=== PATIENT | female | born 1960 | race Caucasian/White ===

== ENCOUNTER → 2025-07-03 | Outpatient (CLI) | payer MEDICARE, SELFPAY ==
--- NOTE | 2025-07-03 14:00 | XR_ITS ---
Examination: CT abdomen and pelvis without contrast. Coronal 3-D reconstructions. Sagittal 2-D reconstructions. Date and time of exam:July 03, 2025, 1358 hours INDICATIONS: Left upper abdominal pain beginning 5 years ago, history kidney stones CTDI: vol (mGy): 4.62 DLP: (mGycm): 201 Technique: Axial images of the abdomen have been obtained, 3 mm slice thickness Intravenous contrast material has not been administered. Low dose protocols were performed. One or more of the following dose reduction techniques were used; automated exposure control, adjustment of the mA and/or KV according to patient size, use of iterative reconstruction technique. Findings: No focal liver or splenic lesion No gallstones No pancreatic mass Normal appendix 13 mm lower pole right renal calculus No hydronephrosis or ureteral calculi No bowel obstruction Mild small bowel ileus Colonic diverticulosis Urinary bladder wall thickening up to 4 mm No bladder calculi Atrophic uterus Advanced degenerative disc disease L1-L2, L3-L4 IMPRESSION: 13 mm nonobstructing right renal calculus Cystitis pattern
== END | disposition home or self-care (01) ==
PROVIDERS: Referring Provider Surgery; Visit Provider Surgery
DX: N20.0 Calculus of kidney (principal)
CPT/HCPCS: 74176

== ENCOUNTER 2025-08-21 09:35 | Day surgery (SDC) | payer MEDICARE, SELFPAY ==
[2025-08-20 10:00] VITALS: BMI 21.9
--- NOTE | 2025-08-20 10:18 | SUR.PREOP ---
Pt stated has no ride or car, she will uber back home, she communicated with Dr Sepulveda and he okayed for her to register and labs the morning of surgery.
--- NOTE | 2025-08-20 13:47 | ESHP_ITS ---
RE: ERICA VELÁSQUEZ : 1960 DATE OF ADMISSION: 08/20/2025 HISTORY OF PRESENT ILLNESS: Patient is a 64-year-old female with a right-sided kidney stone. She has a history of high calcium, parathyroid hormone is normal. PAST SURGICAL HISTORY: Three C-sections. PAST MEDICAL HISTORY: She has a history of radiation to the thyroid for goiter. There is no history of diabetes mellitus, no history of hypertension. SOCIAL HISTORY: She has 3 children. ALLERGIES: CODEINE. HOME MEDICATIONS: 1. Levothyroxine. 2. Inhaler. PHYSICAL EXAMINATION: HEENT: Normal. NECK: Supple. LUNGS: Clear. CARDIOVASCULAR: Heart sounds are normal. ABDOMEN: Soft without any organomegaly. No guarding. No rigidity. EXTREMITIES: Normal. LABORATORY DATA: CT scan of the abdomen revealed 13 mm right renal stone in lower pole. PLAN: Cystoscopy, right ureteral stent insertion, and extracorporeal shock wave lithotripsy for the right renal lower pole stone. Planned procedure, risks, and complications have been discussed with the patient. Patient has understood them and agreed to proceed. DT: 12:48:07 TT: 13:45:00 Ref: [id number] - TID: [id number]
[2025-08-21] VITALS (7 sets, daily range): BP systolic 131–163; BP diastolic 53–91; PULSE 56–65; RESP 13–22; TEMP 36.3–36.4; O2SAT 98–100; BMI 21.5
--- NOTE | 2025-08-21 06:00 | EKG_ITS ---
[facility] Test Date: 2025-08-21 Pat Name: ERICA VELÁSQUEZ Department: Room: - Gender: Female Library Information Technician: CARLEY : 1960 Requested By: Naif Sepulveda Order Number: [id number] Reading MD: Naif Sepulveda Measurements Intervals [place] Rate: 50 P: 71 AL: 140 QRS: 5 QRSD: 98 T: 48 QT: 409 QTc: 374 Interpretive Statements SINUS BRADYCARDIA POSSIBLE LEFT ATRIAL ENLARGEMENT LOW QRS VOLTAGE IN PRECORDIAL LEADS No previous ECG available for comparison /store/[email or web address]/[id number]/ecg/[id number].pdf
--- NOTE | 2025-08-21 10:00 | XR_ITS ---
Examination: Abdomen AP single view Technique: AP portable supine abdomen, single view Exam date and time: August 21, 2025, 1155 hours INDICATIONS: Preop, history kidney stones. FINDINGS: 11 mm lower pole right renal calculus No ureteral calculi Nonobstructive bowel gas pattern IMPRESSION: 11 mm lower pole right renal calculus
[2025-08-21 11:01] LABS: Basophils # (Auto) 0.1 Thou/mm3 (0.0-0.2); Basophils % (Auto) 2 % (0-2.5); Eosinophils # (Auto) 0.1 Thou/mm3 (0.0-0.5); Eosinophils % (Auto) 2 % (0-10); Hematocrit 41.2 % (36.0-46.0); Hemoglobin 14.0 g/dL (12.0-16.0); Immature Granulocytes Auto 0.01 Thou/mm3 (0.00-0.00); Lymphocytes # (Auto) 2.0 Thou/mm3 (1.0-4.8); Lymphocytes % (Auto) 36 % (10-50); Mean Corpuscular HGB Conc 34.0 g/dl (31.0-37.0); Mean Corpuscular Hemoglobin 30.5 pg (25.0-35.0); Mean Corpuscular Volume 90 fL (80-100); Monocytes # (Auto) 0.4 Thou/mm3 (0.0-0.8); Monocytes % (Auto) 6 % (0-12); Neutrophils # (Auto) 3.0 Thou/mm3 (1.8-7.7); Neutrophils % (Auto) 54 % (37-80); Nucleated Red Blood Cell # 0.00 Thou/mm3 (0.00-0.00); Nucleated Red Blood Cell % 0 /100 WBC (0); Platelet Count 250 Thou/mm3 (140-440); RDW Standard Deviation 41.7 fL (36.4-46.3); Red Blood Count 4.59 Miln/mm3 (4.00-5.20); White Blood Count 5.7 Thou/mm3 (3.6-11.0)
[2025-08-21 11:22] LABS: Alanine Aminotransferase 9 U/L (10-49); Albumin, Serum 5.0 gm/dL (3.4-4.8); Albumin/Globulin Ratio 2.3 (1.2-2.2); Alkaline Phosphatase 90 U/L (46-116); Anion Gap 7 (7-16); Aspartate Amino Transferase 18 U/L (0-34); BUN/Creatinine Ratio 8 Ratio (12-20); Bilirubin,Total 0.5 mg/dL (0.3-1.2); Blood Urea Nitrogen 7 mg/dL (9-23); Calcium 10.5 mg/dL (8.3-10.6); Calcium (Corrected) 10.5 mg/dL (8.5-10.1); Carbon Dioxide 26.3 mMol/L (20.0-31.0); Chloride 107 mMol/L (98-107); Creatinine (Component) 0.9 mg/dL (0.6-1.3); Estimated Creatinine Clearance 47.0 mL/min (>60); Globulin 2.2 gm/dL (2.3-3.5); Glucose 97 mg/dL (74-106); Osmolality,Calculated 277 (275-295); Potassium 5.0 mMol/L (3.4-5.1); Sodium 140 mMol/L (136-145); Total Protein 7.2 gm/dL (5.7-8.2); eGFR > 60 See Note
--- NOTE | 2025-08-21 15:45 | SUR.PHASEI ---
1545: pt received from OR via [facility]. received report from IRWIN Dumont and Manish Mcghee RN. pt alert and oriented. denies any pain or discomfort. no s/s of resp. distress or discomfort. no bleeding observed from perinuem.
[2025-08-21] MEDS: ACETAMINOPHEN IVPB 1,000 MG/100 ML VIAL 250 MG IV (16:14)
--- NOTE | 2025-08-21 16:26 | SUR.PHASEII ---
1626: pt requested to use the bathroom. pt able to urinate x1 with pink color urine.
--- NOTE | 2025-08-21 16:40 | SUR.PHASEII ---
1640: discharge instructions given to pt and Rl, friend, verbalizes understanding.
--- NOTE | 2025-08-21 16:41 | SUR.PHASEII ---
1641: pt discharge to home via wheelchair. pt alert and oriented. denies any pain or discomfort. no s/s of resp. distress or discomfort. no bleeding noted from perinuem.
--- NOTE | 2025-08-21 21:47 | ESOP_ITS ---
RE: ERICA VELÁSQUEZ : 1960 PREOPERATIVE DIAGNOSIS: Right renal stone, 13 mm in size. POSTOPERATIVE DIAGNOSIS: Right renal stone, 13 mm in size. PROCEDURES PERFORMED: Cystoscopy, right ureteral stent insertion, 6-Mongolian x 24 cm, and a right extracorporeal shockwave lithotripsy for the right renal stone. ANESTHESIA: General by Mr. Manish Mcghee. INDICATIONS: Patient is a 64-year-old female with a right renal stone, 13 mm in size, with a right renal pain. She was found to have a 13 mm stone in the right renal pelvis. She is now scheduled to have ESWL for the right renal stone with a cystoscopy and right ureteral stent insertion. Planned procedure, risks, and complications have been discussed with the patient. Patient understood them and agreed to proceed. DESCRIPTION OF PROCEDURE: After the patient was brought to the operating table under adequate general anesthesia given by Mr. Manish Mcghee, patient was placed in dorsal lithotomy position. Parts were prepped and draped in the usual fashion. Cystoscopy was then carried out, which revealed adequate urethral meatus, normal-appearing urethra. Residual urine was about 2 ounces, yellow and clear, and was sent for culture and sensitivity examination. There were no intravesical stones or tumors. Ureteral orifices were found to be normal in position and appearance. Right ureteral orifice was catheterized with an open-tip ureteral catheter and a guidewire was passed through the ureteral catheter all the way up to the right kidney. A 6 Mongolian x 24 cm double-J right ureteral stent was inserted over the guidewire under C-arm fluoroscopy control, so as the proximal loop of the stent was lying in the right kidney and distal loop was in the bladder. Patient was then positioned on Dornier Delta 3 lithotripsy machine and 2500 shocks were given to the right renal stone, 13 mm in size, at power level 7. Patient tolerated the entire procedure well and left the room in good condition. DT: 15:35:03 TT: 21:46:00 Ref: [id number] - TID: [id number]
== END 2025-08-21 16:41 | disposition home or self-care (01) ==
PROVIDERS: Anesthesiology; PCP Physician Assistant Medical; Referring Provider Surgery; Visit Provider Surgery
PROC: (CPT 50590; principal; 2025-08-21 14:45)
PROC: (CPT 52282; 2025-08-21 14:45)
DX: N20.0 Calculus of kidney (principal); Z01.810 Encounter for preprocedural cardiovascular examination
CPT/HCPCS: 50590; 52332; 36415; 74018; 80053; 81001; 85025; 87086; 93005; A4217; A4649; C1769; C2617; J0131; J0694; J2250; J2704; J3010; J3490; J1596

== ENCOUNTER → 2025-09-02 | Outpatient (CLI) | payer MEDICARE, MEDICAID, SELFPAY ==
--- NOTE | 2025-09-02 | XR_ITS ---
Examination: Abdomen AP single view Technique: AP portable supine abdomen, single view Exam date and time: September 02, 2025, 1238 hours, comparison March 21, 2025 INDICATIONS: History kidney stones right ureteral stent placement 2 weeks ago. FINDINGS: Right ureteral stent in satisfactory position 12 mm calculus lower pole right kidney with adjacent smaller calculi No left renal calculi IMPRESSION: Right ureteral stent satisfactory position
== END | disposition home or self-care (01) ==
LOC: CDIM 12:15
PROVIDERS: PCP Physician Assistant Medical; Referring Provider Surgery; Visit Provider Surgery
DX: N20.0 Calculus of kidney (principal)
CPT/HCPCS: 74018